=== PATIENT | male | born 1995 | race African-American/Black ===

== ENCOUNTER 2017-03-18 16:36 | Outpatient (CLI) ==
[2017-03-22 20:07] LABS: HIV ANTIBODIES QUALITATIVE NON REACTIVE (Nonreactive)
== END 2017-03-18 16:37 | disposition home or self-care (01) ==
LOC: LAB 16:36
PROVIDERS: ATTEND Nurse Practitioner Family
DX: Z00.00 Encounter for general adult medical examination without abnormal findings (principal)
CPT/HCPCS: 36415; 80074; 86701

== ENCOUNTER 2018-02-12 16:02 | Outpatient (CLI) | END 2018-02-12 16:03 | disposition home or self-care (01) | LOC: FCC-LAB 16:02 | PROVIDERS: ATTEND Nurse Practitioner Family | DX: Z00.00 Encounter for general adult medical examination without abnormal findings (principal) | CPT/HCPCS: 36415; 80074; 87389 ==